=== PATIENT | female | born 2000 | race Caucasian/White ===

== ENCOUNTER 2018-08-23 02:20 | Outpatient (CLI) | payer OTHER ==
[~2018-08-23] VITALS: Ht 165.1 cm; Wt 86.4 kg
[2018-08-23 03:55] VITALS: Ht 165.1 cm; Wt 86.4 kg
--- NOTE | 2018-09-03 14:19 | PN ---
Triage Information Date/Time Reason for visit: Uterine contractions Weeks of Gestation 38 and 6 /Para G1 Diabetes: none Hypertention: none Objective Heart Rate: 130's Contractions: >10 Minutes Apart Results/Medications Imaging Results Single live intrauterine gestation. EDDA = 12.5 cm. Cardiac activity is present with 129 beats per minute. Cephalic presentation. Placental location is anterior. No evidence of previa or abruption. Biophysical profile as follows: movement 2/2 tone 2/2 breathing 2/2 EDDA 2/2 Total 01/11 IMPRESSION: Biophysical profile 01/11. RPTAT: HJ[facility] Physician Soheila Date Time Electronically viewed and signed by Physician Soheila on 08/23/2018 05:04 Disposition: Discharge Assessment/Plan 18 years old 1 with single intrauterine at 38 weeks and 6 days complaining of abdominal pain. She states good movement. She denies nausea, vomiting, shortness of breath, chest pain, headache, visual changes, vaginal bleeding or LOF. Her exam is unremarkable. Her cervix is closed. FHR: No sign of metabolic acidosis- Category I. She has occasional uterine contractions. No cervical changes in 2 hours interval. Ultrasound performed as noted above. Symptoms and sign of labor, preeclampsia, kick count discus sed with patient, she voiced understanding. All of her questions answered. Patient was discharged home in stable condition with the appropriate discharge instructions provided. I would like patient to have close follow-up with her primary physician or outpatient clinic in 1-2 days or return to triage for worsening symptoms or any other urgent concerns. DAVID JOYCE Sep 03, 2018 14:19
== END 2018-08-23 05:15 | disposition home or self-care (01) ==
LOC: L-D 02:20 → OBT 02:20
PROVIDERS: ATTEND Obstetrics & Gynecology
DX: O62.9 Abnormality of forces of labor, unspecified (principal); Z3A.38 38 weeks gestation of pregnancy
CPT/HCPCS: 76818; 81001; 84112; Z7500; G0463

== ENCOUNTER 2018-09-01 16:56 | Inpatient (IN) | payer OTHER ==
[~2018-09-01] VITALS: Ht 165.1 cm; Wt 86.5 kg
[2018-09-01 17:26] VITALS: Ht 165.1 cm; Wt 86.5 kg
[2018-09-01 17:27] VITALS: BP 132/77; PULSE 71; RESP 18
[2018-09-01] MEDS ORDERED: LACTATED RINGER'S 1,000 ML IV PRN (19:50)
[2018-09-01] MEDS ORDERED: METHYLERGONOVINE 0.2 MG INJ IM PRN (20:00)
[2018-09-01] MEDS ORDERED: BUTORPHANOL 2 MG INJ IV PRN (20:00)
[2018-09-01] MEDS ORDERED: MISOPROSTOL 50 MCG CAPSULE VAG ONE (20:00)
[2018-09-01] MEDS ORDERED: OXYTOCIN 30 UNITS/LR 500 ML IV SCH ×3 (20:00→22:30)
[2018-09-01] MEDS ORDERED: CARBOPROST 250 MCG INJ IM PRN (20:00)
[2018-09-01] MEDS ORDERED: LIDOCAINE 1% (MPF) 30 ML INJ INJ PRN (20:00)
[2018-09-01] MEDS ORDERED: MISOPROSTOL 200 MCG TAB PR PRN (20:00)
[2018-09-01] MEDS ORDERED: OXYTOCIN 30 UNITS/LR 500 ML IV PRN (20:00)
--- NOTE | 2018-09-01 20:16 | HP ---
Date/Time of Note Date/Time of Note DATE: 09/01/18 TIME: 20:15 OB - History Hx of Present Free Text/Dictation 18-year-old 1 para 0 at 40 weeks and 2 days of gestation with estimated date of delivery August 30, 2018 Patient presents for postdates testing/NST and BPP She reports positive movement, denies any contractions, denies any vaginal bleeding or leaking fluid GBS is negative Estimated Due Date: Aug 30, 2018 : 1 Para: 0 Care: Good Care Obstetrical Complications: None Medical Complications: None Past Family/Social History * Past Medical, Surgical, Family and Obstetric Histories reviewed from chart. OB Admission Exam Vital Signs Vital Signs Vital Signs Date Temp Pulse Resp B/P (MAP) Pulse Ox O2 O2 Flow FiO2 Time Delivery Rate 09/01/18 98.0 71 18 132/77 17:27 (95) Physical Exam HEENT: WNL Heart: Rhythm Normal Lungs: Clear, Equal Abdomen: WNL Extremities: Normal Reflexes: Normal Cervical Dilatation: 2cm Membranes: Intact Accelerations: Accelerations Present Decelerations: No Decelerations Varibility: Moderate Contractions on Admission: None Last 72 hours Lab Results PROCEDURE: US OB. CLINICAL INDICATION: , post dates. TECHNIQUE: Multiple sonographic images of the pelvis were obtained. Transabd ominal imaging only was performed. The images were reviewed on a PACS workstation. COMPARISON: No prior studies are available for comparison. FINDINGS: There is a single viable intrauterine gestation. Cardiac activity is present with 150 beats per minute. There is a cephalic presentation. Measurements were made in order to determine age. The results are as foll ows: BPD = 9.42 cm HC = 33.29 cm AC = 36.47 cm FL = 7.89 cm Estimated gestational age of approximately 39 weeks 2 days. The estimated date of delivery is 09/06/2018. The EFW = 3899 g. EFW percentile: 69% The placenta is anterior, grade II. There is no evidence for an abruption. IMPRESSION: Single live intrauterine gestation of approximately 39 weeks 2 days, based on ultrasound measurements. The estimated date of delivery is 09/06/2018. EFW percentile: 69%. RPTAT: HTAR .Gunnar Grossman MD, MD Date Time Electronically viewed and signed by .Gunnar Grossman MD, MD on 09/01/2018 20:12 .R/ CC: FEDERICO SYED MD [phone] PROCEDURE: US OB. CLINICAL INDICATION: Post dates TECHNIQUE: Multiple sonographic images of the pelvis were obtained. The images were reviewed on a PACS workstation. COMPARISON: No prior studies are available for comparison. FINDINGS: There is a single intrauterine . Biophysical profile score is as follows: Breathing 2 Movements 2 Tone 2 Fluid volume 2 Amniotic fluid index = 6.4 cm Total biophysical profile score = 8/8 IMPRESSION: Biophysical profile score = 8/8 Mild oligohydramnios RPTAT: HH .Efrain Cifuentes MD, MD Date Time Electronically viewed and signed by .Efrain Cifuentes MD, on 09/01/2018 18:39 .W/ CC: FEDERICO SYED MD [phone] OB Assessment/Plan Reason for admission: induction of labor Plan: Induction (Postdates/borderline oligohydramnios) Induction Method: per Misoprostol Protocol Other plan: Admit to labor and delivery Induction of labor for postdate Pain meds as needed Copies To: CC: FEDERICO SYED MD ; JUNE ROSE MD Sep 01, 2018 20:16
[2018-09-01] MEDS: LACTATED RINGER'S 1,000 ML IV SCH ×2 (20:47→22:59)
--- NOTE | 2018-09-01 23:09 | PREAC ---
Date/Time of Note Date/Time of Note DATE: 09/01/18 TIME: 23:07 Anesthesia Eval and Record Evaluation Time Pre-Procedure Interview DATE: 09/01/18 TIME: 23:07 Age 18 Sex female NPO: 8 hrs Preoperative diagnosis IUP Planned procedure L&D Epidural Past Medical History Past Medical History: None Surgery & Anesthesia Issues No known issue Meds Anticoagulation: No Beta Bethany within 24 hr: No Reason Beta Bethany not given: Pt. not on B-Bethany No Active Prescriptions or Reported Meds Current Medications Lactated Ringer's 1,000 ml @ 125 mls/hr Q8H IV Last administered on 09/01/18at 22:59; Admin Dose 125 MLS/HR; Start 09/01/18 at 19:50 Butorphanol Tartrate (Stadol) 2 mg Q2H PRN IV .PAIN; Start 09/01/18 at 20:00 Lidocaine (Xylocaine 1% (Mpf)) 30 ml ONCE PRN INJ .EPISIOTOMY; Start 09/01/18 at 20:00 Oxytocin/Lactated Ringer's 500 ml @ 500 mls/hr ONCE POST IV ; Start 09/01/18 at 20:00 Oxytocin/Lactated Ringer's 500 ml @ 125 mls/hr POST IV ; Start 09/01/18 at 20:00 Lactated Ringer's 1,000 ml @ 2,000 mls/hr Q30M PRN IV .ANESTHESIA; Start 09/01/18 at 19:50 Oxytocin/Lactated Ringer's 500 ml @ 0 mls/hr ONCE PRN IV .VAGINAL BLEEDING; St art 09/01/18 at 20:00 Methylergonovine Maleate (Methergine) 0.2 mg ONCE PRN IM .VAGINAL BLEEDING; St art 09/01/18 at 20:00 Carboprost Tromethamine (Hemabate) 250 mcg ONCE PRN IM .VAGINAL BLEEDING; Start 09/01/18 at 20:00 Misoprostol (Cytotec) 1,000 mcg ONCE PRN RI .VAGINAL BLEEDING; Start 09/01/18 at 20:00 Oxytocin/Lactated Ringer's 500 ml @ 0 mls/hr FOR AUGMENTATION IV ; Start 09/01/18 at 22:30 Meds reviewed: Yes Allergies Coded Allergies: No Known Allergy (Unverified , 08/23/18) Allergies Reviewed: Yes Labs/Studies Labs Reviewed: Reviewed by anesthesiologist Result Diagram: 09/01/18 2030 Laboratory Tests 09/01/18 20:30 test: Positive Studies: ECG Pre-procedure Exam Last vitals Vital Signs Date Temp Pulse Resp B/P (MAP) Pulse Ox O2 O2 Flow FiO2 Time Delivery Rate 09/01/18 98.0 71 18 132/77 17:27 (95) Airway: Adequate mouth opening, Adequate thyromental dist Mallampati: Mallampati II Teeth: Normal Lung: Normal Heart: Normal ASA Physical Status ASA physical status: 2 Emergency: None Planned Anesthetic Neuraxial: Epidural Planned Pain Management Epidural Pre-operative Attestations Prior to commencing anesthesia and surgery, the patient was re-evaluated, there was verification of: *The patient's identity *The results of appropriate recent lab work and preoperative vital signs *The above evaluation not changing prior to induction *Anesthetic plan, risk benefits, alternative and complications discussed with patient/family; questions answered; patient/family understands, accepts and wishes to proceed. RODRICK JONES MD Sep 01, 2018 23:09
[2018-09-01] MEDS ORDERED: ROPIVACAINE 0.2% 100 ML ONE (23:10)
[2018-09-01] MEDS ORDERED: ROPIVACAINE 0.2% 100 ML INJ EPI SCH (23:30)
[2018-09-02] MEDS: ONDANSETRON 4 MG INJ IV PRN ×2 (01:46→10:53)
[2018-09-02] MEDS: LACTATED RINGER'S 1,000 ML IV SCH ×2 (02:42→07:06)
[2018-09-02] MEDS ORDERED: ROPIVACAINE 0.2% 100ML BAG EPI PRN (06:00)
--- NOTE | 2018-09-02 08:13 | PAC ---
Date/Time of Note Date/Time of Note DATE: 09/02/18 TIME: 08:12 Post-Anesthesia Notes Post-Anesthesia Note Last documented vital signs Vital Signs Date Temp Pulse Resp B/P (MAP) Pulse Ox O2 O2 Flow FiO2 Time Delivery Rate 09/01/18 98.0 71 18 132/77 17:27 (95) Activity: WNL Respiratory function: WNL Cardiovascular function: WNL Mental status: Baseline Pain reasonably controlled: Yes Hydration appropriate: Yes Nausea/Vomiting absent: Yes Comments BP:112/65, P:78, Spo2:100%, T:98,6 RODRICK JONES MD Sep 02, 2018 08:13
[2018-09-02] MEDS ORDERED: OXYTOCIN 30 UNITS/LR 500 ML IV SCH (12:10)
[2018-09-02] MEDS: LACTATED RINGER'S 1,000 ML IV* SCH ×2 (12:10→20:10)
[2018-09-02] MEDS: IBUPROFEN 600 MG TAB PO PRN ×2 (12:13→20:38)
--- NOTE | 2018-09-02 12:13 | LDN ---
Date/Time of Note Date/Time of Note DATE: 09/02/18 TIME: 12:11 Delivery Summary Postdates Placenta Delivered: Spontaneously Meconium: Thick Episiotomy: Yes Laceration repair: Medial episiotomy repaired with 2-0 Vicryl in layered fashion Anesthesia type: Epidural Estimated blood loss: 300 Sponge & Needle done & correct: Yes All needle counts correct: Yes Any foreign bodies felt in the: No Infant Delivery Information Sex Infant Sex: male Apgars 1 Minute: 8 5 Minute: 9 Suctioning Nose & mouth suctioned at armin: Yes Delee suction performed: No Umbilical Cord Umbilical cord with: 3 Vessels Cord presentations: no nuchal cord Cord Blood was obtained: Yes Mother & Baby Disposition Disposition Baby's weight 8 pounds 3 ounces/ 3705 gr Mom & Baby to Maternity; Good: Yes Baby to NICU: No Copies To: CC: FEDERICO SYED MD ; JUNE ROSE MD Sep 02, 2018 12:13
[2018-09-02] MEDS ORDERED: ACETAMINOPHEN 325 MG TAB PO PRN ×2 (12:30)
[2018-09-02] MEDS ORDERED: MISOPROSTOL 200 MCG TAB PR PRN (12:30)
[2018-09-02] MEDS ORDERED: OXYTOCIN 30 UNITS/LR 500 ML IV PRN (12:30)
[2018-09-02] MEDS ORDERED: DIBUCAINE 1% 30 GM OINT TOP PRN (12:30)
[2018-09-02] MEDS ORDERED: MAGNESIUM HYDROXIDE 30ML CUP PO PRN (12:30)
[2018-09-02] MEDS ORDERED: SENNA/DOCUSATE NA (8.6MG/50MG) TAB PO PRN (12:30)
[2018-09-02] MEDS ORDERED: LANOLIN HPA 1 PKT TOP PRN (12:30)
[2018-09-02] MEDS ORDERED: IBUPROFEN 600 MG TAB PO PRN (12:30)
[2018-09-02] MEDS ORDERED: ONDANSETRON 4 MG INJ IV PRN (12:30)
[2018-09-02] MEDS ORDERED: BENZOCAINE 20% 56 ML SPRAY TOP PRN (12:30)
[2018-09-02] MEDS ORDERED: CARBOPROST 250 MCG INJ IM PRN (12:30)
[2018-09-02] MEDS ORDERED: METHYLERGONOVINE 0.2 MG INJ IM PRN (12:30)
[2018-09-02] MEDS ORDERED: WITCH HAZEL/GLYCERIN PAD PR PRN (12:30)
[2018-09-02] MEDS: OXYCODONE/ACETAMINOPHEN (5/325) TAB PO PRN (13:45)
[2018-09-02] MEDS ORDERED: HYDROCODONE/APAP (5/325) TAB PO PRN ×2 (14:00)
[2018-09-02] MEDS: CEFAZOLIN 1 GM/50 ML (PMX) 50 ML IVPB SCH ×2 (14:02→22:32)
[2018-09-02 14:50] VITALS: BP 107/52; PULSE 75; RESP 18
[2018-09-02 16:43] VITALS: BP 120/72; PULSE 76; RESP 18
[2018-09-02 20:00] VITALS: BP 124/62; PULSE 74; RESP 20
[2018-09-03] MEDS: IBUPROFEN 600 MG TAB PO PRN ×2 (03:00→17:11)
[2018-09-03] MEDS: LACTATED RINGER'S 1,000 ML IV* SCH ×2 (04:10→19:51)
[2018-09-03 04:47] VITALS: BP 120/54; PULSE 74; RESP 20
[2018-09-03] MEDS: CEFAZOLIN 1 GM/50 ML (PMX) 50 ML IVPB SCH (05:36)
[2018-09-03 07:30] VITALS: BP 91/54; PULSE 64; RESP 18
[2018-09-03] MEDS: OXYCODONE/ACETAMINOPHEN (5/325) TAB PO PRN (08:27)
--- NOTE | 2018-09-03 09:50 | QN ---
Documentation Comment PPD #1 Pt feels well with minimal bleeding. The baby is not latching on well and also has been spitting up after every feeding. Pt has been pumping and then feeding the baby. T=98.5 BP 91/54 Fundus firm. Lochia minimal. Ext 1+ edema. WBC 12.3 Hgb 10.4 Plts 115K P: Continue care with the salesforce consultant. AKHIL XIE MD Sep 03, 2018 09:50
[2018-09-03 15:30] VITALS: BP 100/63; PULSE 78; RESP 16
[2018-09-03 20:00] VITALS: BP 110/68; PULSE 65; RESP 18; RESP 20
[2018-09-04] MEDS: LACTATED RINGER'S 1,000 ML IV* SCH (04:10)
[2018-09-04] MEDS: IBUPROFEN 600 MG TAB PO PRN (06:41)
[2018-09-04 07:30] VITALS: BP 98/58; PULSE 72; RESP 18
--- NOTE | 2018-09-04 11:17 | DS ---
Date/Time of Note Date/Time of Note DATE: 09/04/18 TIME: 11:16 Obstetrical Discharge Record Final Diagnosis Final Diagnosis: Term delivered Vaginal Delivery Obstetrical Delivery: Spontaneous, Laceration, Repaired Condition on Discharge Physical Assessment Last Vitals: stable afebrile Voiding: Yes Bowel Movement: Yes Breast: Soft, non-tender, Filling Fundus: Firm Abdomen and Incision: soft nt Calf Tenderness: No Patient Condition: Fair FEDERICO SYED MD Sep 04, 2018 11:17
--- NOTE | 2018-09-04 11:18 | PD.PPDC ---
FISHING MANAGER Discharge Instruction Condition [id number] Patient Condition: Dvgpb9i Fair Diet Bkvfl1Cg Diet: Zvlqe8t Resume Regular Diet Activity/Restrictions [id number] Activity: Trxnc2n Normal Activity May Shower Ofasm1Mr Restrictions: Nkeza6x No Exercising No Lifting No Driving No Sexual Activity Nothing in the Vagina No [place] No Tampons, douche Follow-up Follow-up with Physician: 3 Return to clinic for [id number] NUCLEAR INSTRUCTOR Instructions: [id number] Fever greater than 101 Chills Worsening abdominal pain Excessive Vaginal Bleeding More than 2 pads per hour Unable to tolerate diet [id number] OB Instructions: Xghff1t Breast Tenderness Depression Blurried Vision Headache [id number] Surgical Instructions: Pnday0t Incisional Drainage Incisional Redness FEDERICO SYED MD Sep 04, 2018 11:18
--- NOTE | 2018-09-05 16:18 | DELSUM ---
Delivery Summary A-C Datetime Report Generated by CPN: 09/05/2018 16:18 DELIVERY PERSONNEL Finishing Machine Tender: PeaceJesicaSenait MATERNAL INFORMATION Delivery Anesthesia: Epidural Medications in Delivery: 30 UNITS PITOCIN Delivery QBL (ml): 272 Placenta Cultured: No Maternal Complications: None LABOR SUMMARY EDC: 08/30/2018 00:00 No. Babies in Womb: 1 Attempted: No Labor Anesthesia: Epidural LABOR INFORMATION Reason for Induction: Postterm Onset of Labor: 09/02/2018 00:21 Complete Dilatation: 09/02/2018 10:44 Oxytocin: Augmentation Group B Beta Strep: Negative Antibiotics # of Doses: 0 Steroids Given: None Reason Steroids Not Administered: Not Applicable MEMBRANES Membranes Rupture Method: Artificial Rupture of Membranes: 09/02/2018 11:22 Length of Rupture (hr): 0.03 Amniotic Fluid Color: Heavy Meconium Amniotic Fluid Amount: Small Amniotic Fluid Odor: None STAGES OF LABOR Stage 1 hr: 10 Stage 1 min: 23 Stage 2 hr: 0 Stage 2 min: 40 Stage 3 hr: 0 Stage 3 min: 3 Total Time in Labor hr: 11 Total Time in Labor min: 6 VAGINAL DELIVERY Episiotomy: Median Laceration Extension: N/A Laceration Type: None Laceration Repair: Yes Initial Vag Sponge Count: 10 Final Vag Sponge Count: 10 Initial Vag Sharps Count: 1+3 Final Vag Sharps Count: 4 Sponge Count Correct: Yes; Vaginal Sweep Performed Sharps Count Correct: Yes BABY A INFORMATION Infant Delivery Date/Time: 09/02/2018 11:24 Method of Delivery: Vaginal Born in Route : No : N/A Forceps: N/A Vacuum Extraction: N/A Shoulder Dystocia : N/A SHOULDER DYSTOCIA BABY A Infant Delivery Date/Time: 09/02/2018 11:24 PRESENTATION/POSITION BABY A Presentation: Compound Cephalic Presentation: Vertex Breech Presentation: N/A PLACENTA INFORMATION BABY A Placenta Delivery Time : 09/02/2018 11:27 Placenta Method of Delivery: Spontaneous Placenta Status: Delivered SCORES BABY A Heart Rate 1 min: >100 bpm Resp Effort 1 min: Good Cry Reflex Irritability 1 min: Cough/Sneeze/Pulls Away Muscle Tone 1 min: Active Motion Color 1 min: Blue/Pale Resuscitation Effort 1 min: Tactile Stimulation SCORE 1 MIN: 8 Heart Rate 5 min: >100 bpm Resp Effort 5 min: Good Cry Reflex Irritability 5 min: Cough/Sneeze/Pulls Away Muscle Tone 5 min: Active Motion Color 5 min: Body [place], Extremit Blue Resuscitation Effort 5 min: Tactile Stimulation SCORE 5 MIN: 9 INFANT INFORMATION BABY A Gestational Age at Delivery: 40.3 Gestational Status: Full Term- 39- 40.6 Weeks Outcome : Liveborn Condition : Stable Sex: Male IDENTIFICATION/MEDS BABY A ID Band Number: [id number] ID Band Location: Right Leg; Left Arm Sensor Applied: Yes Sensor Number: [id number] Sensor Location : Cord Clamp Vitamin K Given : Not Given Erythromycin Given: Not Given WEIGHT/LENGTH BABY A Birthweight (gm): 3705 Weight (lb): 8 Weight (oz): 3 Infant Length (in): 20.00 Infant Length (cm): 50.80 CORD INFORMATION BABY A No. Cord Vessels: 3 Nuchal Cord : N/A Cord Blood Taken: Yes Suction: Mouth; Nose; Pharynx ASSESSMENT BABY A Infant Complications: Multiple Variable Decels; Meconium Physical Findings at Delivery: Within Normal Limits Infant Respirations: Appears Normal Guest Services Representative/ALS Called : No Care By: ALLAN Kebede/ Shiva RT Transferred To: Remains with Mother
== END 2018-09-04 15:50 | disposition home or self-care (01) | DRG 807 ==
LOC: OBT 16:56 → L-D 16:58 → OBT 19:34 → PP1 09-02 15:32
PROVIDERS: ADMIT Obstetrics & Gynecology; ATTEND Obstetrics & Gynecology
PROC: 10E0XZZ Delivery of Products of Conception, External Approach (ICD-10-PCS; principal; 2018-09-02)
PROC: 0W8NXZZ Division of Female Perineum, External Approach (ICD-10-PCS; 2018-09-02)
DX: O48.0 Post-term pregnancy (principal); Z37.0 Single live birth; Z3A.40 40 weeks gestation of pregnancy
CPT/HCPCS: 62319; 76815; 76818; 85025; 85610; 85730; 86592; 86850; 86900; 86901; 87340; 88307; 99464; G0463; J0690; J2405; J2590; J2795; J7120